=== PATIENT | male | born 1955 | race Caucasian/White ===

== ENCOUNTER 2018-05-27 13:12 | Day surgery (SDC) | payer OTHER ==
[2018-05-27] MEDS ORDERED: LABETALOL HCL 20MG INJ IV (15:30)
[2018-05-27] MEDS ORDERED: HYDROmorphONE 1 MG/5 ML IV SYRINGE IV ×2 (15:30)
[2018-05-27] MEDS ORDERED: hydrALAzine 20 MG INJ IV (15:30)
[2018-05-27] MEDS ORDERED: METOCLOPRAMIDE 10 MG INJ IV (15:30)
[2018-05-27] MEDS ORDERED: ONDANSETRON 4 MG INJ IV (15:30)
[2018-05-27] MEDS ORDERED: FENTAnyl 50 MCG/ML VIAL IV ×2 (15:30)
[2018-05-27] MEDS ORDERED: PROPOFOL 60 ML (15:44)
== END 2018-05-27 17:12 | disposition home or self-care (01) ==
LOC: GIL 13:12
DX: Z12.11 Encounter for screening for malignant neoplasm of colon (principal); K21.0 Gastro-esophageal reflux disease with esophagitis; K62.1 Rectal polyp; K29.00 Acute gastritis without bleeding; K57.30 Diverticulosis of large intestine without perforation or abscess without bleeding; K64.8 Other hemorrhoids; E78.5 Hyperlipidemia, unspecified
CPT/HCPCS: 43239; 88305; 88312; 88313